=== PATIENT | female | born 1985 | race African-American/Black ===

== ENCOUNTER 2018-07-15 14:09 | Emergency (ER) | payer MEDICAID ==
--- NOTE | 2018-07-15 15:19 | ER Document Report ---
ED Medical Screen (RME) - General Chief Complaint: Chest Pain Stated Complaint: BLOOD PRESSURE ISSUE Time Seen by Provider: 07/15/18 15:15 Primary Care Provider: PATRICIA ZUNIGA [Primary Care Provider] - Follow up as needed Mode of Arrival: Ambulatory Information source: Patient Notes: Patient is a 32-year-old female with history of hypertension presenting to the emergency department dizziness, headache, chest pain high blood pressure. Patient reports she has not had her blood pressure medication for at least 3 weeks. Exam: Lung sounds clear and equal bilaterally. Heart sounds S1-S2 present with no ectopy noted. I have greeted and performed a rapid initial assessment of this patient. A comprehensive ED assessment and evaluation of the patient, analysis of test results and completion of the medical decision making process will be conducted by additional ED providers. Dictation of this chart was performed using voice recognition software; therefore, there may be some unintended grammatical errors. - Related Data Allergies/Adverse Reactions: hydromorphone HCl [From Dilaudid] Adverse Reaction (Verified 07/15/18 14:11) Generalized Itching morphine [Morphine] Adverse Reaction (Verified 07/15/18 14:11) itching Past Medical History - Past Medical History Cardiac Medical History: Reports: Hx Hypertension Past Surgical History: Reports: Hx Section - Immunizations Immunizations up to date: Yes Hx Diphtheria, Pertussis, Tetanus Vaccination: Yes Physical Exam - Vital signs Vitals: Temp Pulse BP Pulse Ox 98.9 F 88 180/109 H 100 07/15/18 14:20 07/15/18 14:20 07/15/18 14:20 07/15/18 14:20 Course - Vital Signs Vital signs: Temp Pulse Resp BP Pulse Ox 98.9 F 88 180/109 H 100 07/15/18 14:20 07/15/18 14:20 07/15/18 14:20 07/15/18 14:20 Doctor's Discharge - Discharge Referrals: PATRICIA ZUNIGA [Primary Care Provider] - Follow up as needed
[2018-07-15 15:53] LABS: ABSOLUTE BASOPHILS # (AUTO) 0.1 10^3/uL (0.0-0.2); ABSOLUTE EOSINOPHILS # (AUTO) 0.4 10^3/uL (0.0-0.6); ABSOLUTE LYMPHOCYTES (AUTO) 1.8 10^3/uL (0.5-4.7); ABSOLUTE MONOCYTES (AUTO) 0.5 10^3/uL (0.1-1.4); BASOPHILS % (AUTO) 0.7 % (0-2); EOSINOPHILS % (AUTO) 5.8 % (0-6); HEMATOCRIT 39.7 % (36.0-47.0); HEMOGLOBIN 12.9 g/dL (12.0-15.5); LYMPHOCYTES % (AUTO) 26.9 % (13-45); MEAN CORPUSCULAR HEMOGLOBIN 31.1 pg (27.0-33.4); MEAN CORPUSCULAR HGB CONC 32.6 g/dL (32.0-36.0); MEAN CORPUSCULAR VOLUME 96 fl (80-97); MONOCYTES % (AUTO) 7.2 % (3-13); PLATELET COUNT 275 10^3/uL (150-450); RED BLOOD COUNT 4.16 10^6/uL (3.72-5.28); SEGMENTED NEUTROPHILS % (AUTO) 59.4 % (42-78); TOTAL CELLS COUNTED % (AUTO) 100 %; WHITE BLOOD COUNT 6.8 10^3/uL (4.0-10.5)
--- NOTE | 2018-07-15 16:03 | RADIOLOGY REPORT (SQ) ---
EXAM DESCRIPTION: CHEST SINGLE VIEW COMPLETED DATE/TIME: 07/15/2018 3:56 pm REASON FOR STUDY: chest pain COMPARISON: 10/28/2012 EXAM PARAMETERS: NUMBER OF VIEWS: One view. TECHNIQUE: Single frontal radiographic view of the chest acquired. RADIATION DOSE: NA LIMITATIONS: None. FINDINGS: LUNGS AND PLEURA: No opacities, masses or pneumothorax. No pleural effusion. MEDIASTINUM AND HILAR STRUCTURES: No masses. Contour normal. HEART AND VASCULAR STRUCTURES: Heart normal in size. Normal vasculature. BONES: No acute findings. HARDWARE: None in the chest. OTHER: No other significant finding. IMPRESSION: No acute abnormality of the lungs in frontal projection. TECHNICAL DOCUMENTATION: JOB ID: [id number] [employer]- All Rights Reserved Reading location - IP/workstation name: [email or web address]
[2018-07-15 16:17] LABS: ALANINE AMINOTRANSFERASE 14 U/L (9-52); ALBUMIN 4.2 g/dL (3.5-5.0); ALKALINE PHOSPHATASE 72 U/L (38-126); ANION GAP 9 (5-19); ASPARTATE AMINO TRANSFERASE 13 U/L (14-36); BILIRUBIN,DIRECT 0.2 mg/dL (0.0-0.4); BILIRUBIN,TOTAL 0.3 mg/dL (0.2-1.3); BLOOD UREA NITROGEN 13 mg/dL (7-20); CALCIUM 10.2 mg/dL (8.4-10.2); CARBON DIOXIDE 26 mmol/L (22-30); CHLORIDE 108 mmol/L (98-107); GLUCOSE 81 mg/dL (75-110); POTASSIUM 4.3 mmol/L (3.6-5.0); SODIUM 142.8 mmol/L (137-145); TOTAL PROTEIN 7.4 g/dL (6.3-8.2)
--- NOTE | 2018-07-15 16:50 | EKG REPORT ---
SEVERITY:- ABNORMAL ECG - SINUS RHYTHM RENEE, CONSIDER BIATRIAL ABNORMALITIES PROBABLE LEFT VENTRICULAR HYPERTROPHY : Confirmed by: Juan M Florentino MD 15-Jul-2018 16:50:22
[2018-07-15 17:55] VITALS: BP 205/149
[2018-07-15] MEDS ORDERED: METOPROLOL SUCCINATE 50 MG TAB.SR.24H PO ONE (17:55)
[2018-07-15] MEDS ORDERED: CLONIDINE 0.2 MG/24 HR PATCH.TDWK TD ONE (17:55)
[2018-07-15] MEDS ORDERED: AMLODIPINE BESYLATE 5 MG TABLET PO ONE (17:55)
--- NOTE | 2018-07-15 18:01 | ER Document Report ---
Doctor's Note Notes: 07/15/18 17:59 Nursing staff came upfront to triage stating that patient has been in room 13 for well over nail and is still not been seen by provider. Patient's blood pressure currently 195/131 and they are requesting orders for this patient for blood pressure medication. I did go to the back to discuss this with attending physician and while awaiting speaking with the attending physician the patient came out of the room cursing stating that she is leaving that we are not doing anything for her. I did explain to the patient that her blood pressure is significantly elevated and I highly advised to not leave and that I was actually in the process of speaking with the attending physician to determine if they wanted her to have IV antihypertensives or oral. After much argument patient agreed to go back to her room to await treatment. Advised by Dr. Saucedo to go ahead and give her her oral medications at this time. Orders placed.
== END 2018-07-15 18:15 | disposition left against medical advice (07) ==
LOC: ER 14:09
DX: I10 Essential (primary) hypertension (principal); R07.9 Chest pain, unspecified; R42 Dizziness and giddiness; R51 Headache; Z88.6 Allergy status to analgesic agent
CPT/HCPCS: 93005; 99281; 36415; 85025; 80053; 84484; 71045; 93010; J3490